=== PATIENT | female | born 1965 | race African-American/Black ===

== ENCOUNTER → 2016-06-28 | Outpatient (CLI) | payer OTHER ==
[~2016-06-28] MED LIST: CARISOPRODOL 3350 MG PO; CLARITIN10 MG PO; DETROL2 M1 PO; HYDROCHLOROTHIA25 M2 PO; LEXAPRO20 MG PO; LOPRESSOR50 MG PO; LOPRESSOR50 PO; MOBIC15 MG PO; NEURONTIN 300300 M1 PO; NORVASC5 MG PO; OMEPRAZOLE 20 M20 M1 PO; OXYCODONE HCL 55 MG PO; RESTORIL30 MG PO; SYMBICORT160 MCG/4. INH; SYMBYAX 6-25 M1 EACH PO; VENTOLIN HFA 1818 GM INH; XANAX1 MG PO; ZANAFLEX4 MG PO
== END ==
LOC: CAT 10:21
DX: E04.1 Nontoxic single thyroid nodule (principal); R22.0 Localized swelling, mass and lump, head

== ENCOUNTER → 2016-07-02 | Outpatient (CLI) | payer OTHER ==
[~2016-07-02] VITALS: Ht 160 cm; Wt 74.8 kg
[~2016-07-02] MED LIST changes: +BUTRANS1 EAC2 TD; +COZAAR 50 MG TA50 M2 PO; +NEURONTIN600 MG PO
--- NOTE | ~2016-07-02 | HPC ---
[facility] [place] [address] PAIN MANAGEMENT CONSULTATION Name: RAJEEV DURON Room #: REG [facility] Amelia.#: [id number] Admission: 07/02/16 Attend Phys: Rui Mccain DO Discharge: Date of : 67 Report #: [id number] THIS REPORT FOR: //name// CC: Iker Mccain HISTORY OF PRESENT ILLNESS: The patient is a 51-year-old female. She was prior seen in the pain clinic in consultation, 06/04/2016. The patient was diagnosed with symptomatic acute and chronic pain. Component of neuropathic pain (burning dysesthesia in bilateral legs), general deconditioning, axial back pain with multiple psychiatric comorbidities including posttraumatic stress disorder, on multiple central acting agents including a very large dose alprazolam (2 mg 5 times a day) and she had been prior habituated to high dose opiates including oxycodone 30 mg up to 4 times a day. She was weaning down when I saw her, she was down to 10 mg 4 times a day. I suggested she drop to b.i.d. and continue to wean. We trialed patient on gabapentin 300 mg titrating up to 2 tablets 3 times a day. I had recommended physical therapy at that visit, though the patient really has not started this. She notes that her daughter does have a gym member and she is planning to move forward with going to the gym with her daughter and starting water therapy. She is moving to a facility that does have an outer pool, so she can hopefully continue that activity in the summer. The patient presents to the pain clinic today, we had a prolonged visit from 8:30 to 8:55, greater than 50% of the 25+ minute visit was spent counseling the patient. The patient notes gabapentin does not afford dramatic relief. She is completely out of opiates. She rates her pain "10" on a 0-10 visual analog scale. She describes aching pain, left greater than right leg, subjective weakness in the left leg. States she has some right shoulder pain which is nominal. She describes constant, burning, shooting, aching, stabbing pain, again rating it at 10 on a 0-10 visual analog scale. States pain is exacerbated with sitting, standing or lying down. PHYSICAL EXAMINATION: Shows 51-year-old female, BMI is 29.2 kilograms per meter squared. Blood pressure is 139/97, pulse 89, respirations 16. Cervical range of motion is full. Upper extremity strength is preserved. Rises from the chair using armrests, has an antalgic gait. Lumbar flexion is good to about 80 degrees. Objectively, lower extremity strength is 4/5 to all muscle groups tested including hip flexion, lower extremity flexion, extension and dorsiflexion, plantarflexion. Patellar and Achilles reflexes are preserved at 1/4. Straight leg raise does not reproduce radicular symptoms, though she does complain of pain in her hips. Passive rotation of the hips produces subjective pain though during my exam, I utilized a fairly nominal range of motion. There was no guarding, there was no crepitance, merely subjective complaint of pain. Becky test was negative. The patient complained of anterior thigh pain more compatible with some stretching of the proximal quadriceps. Inspection of the [facility] [address] [place] [address] PAIN MANAGEMENT CONSULTATION Name: RAJEEV DURON Room #: REG Anthony Purvis#: [id number] Admission: 07/02/16 Attend Phys: Rui Mccain DO Discharge: Date of : 67 Report #: [id number] back is unremarkable, midline is good. There is some diffuse subjective tenderness, no discrete trigger points or muscle spasms appreciable. I again reviewed the patient's MRI from 04/16/2016 really fairly unremarkable. L2-L3, L3-L4, L4-L5 are all within normal limits. L5-S1 shows some loss of disk height. There is no central stenosis. There is mild neural foraminal narrowing on the left. ASSESSMENT: Chronic pain syndrome requiring complex medication management, axial back pain, general deconditioning, significant psychiatric comorbidities in a patient with prior history of opiate habituation. RECOMMENDATION: 1. Again strongly recommend that the patient consider physical therapy. I had written for PT for core stabilization last visit, though the patient has not started this. 2. We will rotate from gabapentin 300 mg 2 tablets 3 times a day to a single 600 mg tablet 3 times a day. Continue meloxicam 15 mg 1 a day, tizanidine as needed for spasm. After a long discussion with the patient today, we have elected to trial of Butrans patch at 10 mcg q. 7 days. I pointed out that short acting opiates are contraindicated for chronic pain issues, particularly when there is no discernible pathology noted. The patient was discharged in good and stable condition. Follow up in 4 weeks for reevaluation. We may consider titrating Butrans dose as indicated. I stressed to the patient she will not be "pain free." We are merely trying to enable the patient to increase her functional status with" some "diminution of her subjective pain. By: [id number] Rui Mccain DO /nt
[2016-07-02 08:47] VITALS: BP 139/97
== END ==
LOC: PAIN
DX: G89.4 Chronic pain syndrome (principal); M54.89 Other dorsalgia; G43.809 Other migraine, not intractable, without status migrainosus; F32.9 Major depressive disorder, single episode, unspecified

== ENCOUNTER → 2016-07-30 | Outpatient (CLI) | payer OTHER ==
[~2016-07-30] VITALS: Ht 160 cm; Wt 74.8 kg
[~2016-07-30] MED LIST changes: +BUTRANS1 EACH TD
--- NOTE | ~2016-07-30 | HPC ---
[facility] [place] [address] PAIN MANAGEMENT CONSULTATION Name: RAJEEV DURON Room #: REG [facility] Hyun#: [id number] Admission: 07/30/16 Attend Phys: Rui Mccain DO Discharge: Date of : 67 Report #: [id number] THIS REPORT FOR: //name// CC: Iker Mccain The patient is a 51-year-old female last seen in the pain clinic 07/02/2016. She came to us on high opiate and benzo use. Continue to take Xanax 2 mg up to 5 a day. Had rotated down from very high dose opiates. I started the patient on Butrans patch at 10 mcg q. 7 days. She returns to pain clinic today stating that this is not efficacious "at all." She is taking gabapentin 600 mg t.i.d. She complains of subjective pain that she rates at 10 on a 0-10 visual analog scale, complaining of pain in her back and she was wearing a brace on her left knee. Prior to office visits in June noted absolutely no dramatic pathology. Simply subjective pain. I wrote for physical therapy at last visit, it is unclear if the patient has been able to meet this appointment. She is wearing a brace in the left knee, states she had steroid injections in her left knee with no efficacy from her general freight agent physician. She apparently has seen an orthopedic surgeon who suggested no surgery. She uses a cane in her right hand. PHYSICAL EXAMINATION: Shows 51-year-old female, BMI is 29.2 kilograms per meter squared. Vital signs are absolutely within normal limits and stable. She is alert and oriented to person, place, and time, judged to be a reasonable historian. Inspection of the left knee shows modest ballotable edema, perhaps 15 or 20 mL at best. Ligaments are intact. Diffuse axial tenderness across the low back. No discrete trigger points noted. Lower extremity strength is symmetric. Deep tendon reflexes are preserved. ASSESSMENT: Neuropathic pain, chronic pain syndrome, axial back pain, history of posttraumatic stress disorder requiring complex medication management with some component of left knee degenerative joint disease. RECOMMENDATIONS: 1. We will get x-rays of the left knee 3 views. If there is any dramatic pathology, we can consider steroid and/or course of Synvisc injections. 2. We have elected to increase Butrans 100% to 20 mcg q. 7 days. May use acetaminophen up to 3000 mg for breakthrough pain. Reminded patient about concern for concurrent use of any opiate, even buprenorphine and benzodiazepines. Continue meloxicam 15 mg a day and tizanidine for spasm. Follow up in 4 weeks to evaluate efficacy of intervention[place] [address] PAIN MANAGEMENT CONSULTATION Name: RAJEEV DURON Room #: REG GLORIA Purvis#: [id number] Admission: 07/30/16 Attend Phys: Rui Mccain DO Discharge: Date of : 67 Report #: [id number] review diagnostic studies. I again assured the patient that she has no dramatic pathology. We will simply continue the most conservative course that we can. Discharged in good and stable condition after prolonged visit, seen for approximately 30 minutes, greater than 50% of time spent counseling the patient. <ELECTRONICALLY SIGNED> By: Rui Mccain DO 08/02/16 0806 1233 [id number] Rui Mccain DO /nt
[2016-07-30 10:17] VITALS: BP 125/72
== END ==
LOC: PAIN 07:17
DX: G89.4 Chronic pain syndrome (principal); M79.2 Neuralgia and neuritis, unspecified; M54.9 Dorsalgia, unspecified; F43.10 Post-traumatic stress disorder, unspecified; M17.12 Unilateral primary osteoarthritis, left knee; G43.909 Migraine, unspecified, not intractable, without status migrainosus; F11.20 Opioid dependence, uncomplicated; Z98.890 Other specified postprocedural states

== ENCOUNTER → 2016-08-27 | Outpatient (CLI) | payer OTHER ==
[~2016-08-27] VITALS: Ht 160 cm; Wt 76.7 kg
--- NOTE | ~2016-08-27 | HPC ---
[facility] [place] [address] PAIN MANAGEMENT CONSULTATION Name: RAJEEV DURON Room #: REG [facility] Amelia.#: [id number] Admission: 08/27/16 Attend Phys: Rui Mccain DO Discharge: Date of : 67 Report #: [id number] THIS REPORT FOR: //name// CC: Iker Mccain HISTORY OF PRESENT ILLNESS: The patient is a 51-year-old female last seen in pain clinic 07/30/2016. The patient is being treated for chronic pain syndrome, neuropathic pain, axial back pain, DJD left knee, history of PTSD requiring complex medication management. Last visit, we increased Butrans patch from 10 to 20 mcg q. 7 days. Continue gabapentin 600 mg t.i.d. Encourage the patient to continue weaning Xanax with her primary treating physician, Dr. Sharp. She was down to Xanax 2 mg 5 a day at that time. Continue meloxicam and tizanidine for spasm. With increasing pain in the left knee, I ordered x-rays to be accomplished. They were accomplished 07/30/2016. We reviewed those findings today, the joint spaces are well maintained without narrowing or spurring. There is some mild spurring along the anterior superior patella. There is a bone island in the distal femur, which as the radiologist notes is "of doubtful significance." Visualization of the right knee noted on several planes showed really no pathology here either. I prescribed physical therapy 06/04/2016, but patient never followed through with this recommendation. Returns to pain clinic today noting pain today is at 8/10. Complains of pain in her buttocks, legs, calf and knees. Pain in the right shoulder as well. She describes constant, burning, shooting, aching pain, rates it an 8 on a 0-10 visual analog scale, exacerbated with sitting, standing and lying down. Noting "nothing else." PHYSICAL EXAMINATION: GENERAL: Shows a 51-year-old female, BMI is 29.9 kilograms per meter squared. VITAL SIGNS: Blood pressure is 115/77, pulse 85, respirations are 14. Cranial nerves 2-12 are grossly intact. HEENT: Pupils are equal, reactive to light and accommodation. Extraocular muscles are intact. NEUROLOGIC: Alert and oriented to person, place and time, judged to be a reasonable historian. Rises from the chair using the armrest. Gait is tandem. Inspection of the knee shows really no ballottable edema on either side. Ligaments are intact. ASSESSMENT: Chronic pain syndrome requiring complex medication management, axial back pain, subjective pain in the knees, PTSD by history. [address] [address] PAIN MANAGEMENT CONSULTATION Name: DAVID DURONKIRILL Emery Room #: REG [facility] Hyun#: [id number] Admission: 08/27/16 Attend Phys: Rui Mccain DO Discharge: Date of : 67 Report #: [id number] RECOMMENDATIONS: Long discussion with the patient today about therapeutic option. We have elected to simply continue Butrans at 20 mcg q. 7 days, Meloxicam 15 mg 1 a day. Strongly encouraged increased range of motion, physical activity and water aerobics. Follow up in 3 months for evaluation. Discharged in good and stable condition. By: [id number] Rui Mccain, /nt
[2016-08-27 08:13] VITALS: BP 115/77
== END | disposition home or self-care (01) ==
LOC: PAIN 07:09
DX: G89.4 Chronic pain syndrome (principal); M17.12 Unilateral primary osteoarthritis, left knee; M54.9 Dorsalgia, unspecified; M25.561 Pain in right knee; M25.562 Pain in left knee; Z87.898 Personal history of other specified conditions

== ENCOUNTER → 2016-11-11 | Outpatient (CLI) | payer OTHER ==
[~2016-11-11] VITALS: Ht 157.5 cm; Wt 74.8 kg
[~2016-11-11] MED LIST changes: +BUPRENORPHINE HC2 MG SL; +LOSARTAN-HCTZ1 EAC3 PO
--- NOTE | ~2016-11-11 | HPC ---
[facility] [place] [address] PAIN MANAGEMENT CONSULTATION Name: RAJEEV DURON [id number] Admission: 11/11/16 Attend Phys: Rui Mccain DO Discharge: Date of : 67 Report #: [id number] THIS REPORT FOR: //name// CC: Iker Mccain HISTORY OF PRESENT ILLNESS: The patient is a 51-year-old female, prior seen 08/27/2016 for chronic pain, DJD affecting knees and historically, moderate obesity with a BMI of 30.2 kilograms per meter squared, requiring complex medication management. Significant comorbidity includes PTSD on multiple central acting agents. She returns to pain clinic today, last seen in pain clinic 08/27/2016, continue Butrans 20 mcg with Meloxicam 15 mg 1 a day. The patient sent to physical therapy for water aerobics. She returns to pain clinic today. She notes that the Butrans simply is not working. Pain is in the low back, buttocks and legs. To her credit, she has been doing water aerobics. She is, however, still taking fairly high dose Xanax 1 mg up to 5 times a day. She notes pain is low back, buttocks and legs, chronic burning, aching. She rates it at 10 on a VAS. Pain exacerbated with any activity. PHYSICAL EXAMINATION: VITAL SIGNS: Shows 51-year-old female, BMI is 30.2 kilograms per meter squared. Vital signs show modest hypertension 145/85, pulse 83, respirations 16. EXTREMITIES: Rises from chair using armrests, antalgic gait, diffuse tenderness across the low back, some tenderness particularly in that left knee, though no ballotable edema is noted. RECOMMENDATIONS: Long discussion with the patient today about therapeutic options and have elected to simply wean the Butrans, I will have her discontinue that patch, I wrote a short course for buprenorphine 2 mg, dispensed 12 tablets to use 1, 3 times a day for 2 days, 2 a day for 2 days and 1 a day for 2 days. I would like to see her back in about 2 weeks for reevaluation. We may consider starting her on Embeda 20 mg/0.8 single dose opiate. While concern with history of PTSD, multiple central acting agents including Xanax if she does require an ongoing analgesic agent, I think limiting her ability to escalate the dose, i.e., 1 a day medication would be most logical. Discharged in good and stable condition. Follow up in 2 weeks for reevaluation. By: [id number] Rui Mccain DO /nt
[2016-11-11 12:46] VITALS: BP 145/85
== END ==
LOC: PAIN 06:54
DX: M17.0 Bilateral primary osteoarthritis of knee (principal); M54.5 Low back pain; M54.2 Cervicalgia; I10 Essential (primary) hypertension; Z88.8 Allergy status to other drugs, medicaments and biological substances; Z79.899 Other long term (current) drug therapy

== ENCOUNTER → 2016-11-25 | Outpatient (CLI) | payer OTHER ==
[~2016-11-25] VITALS: Ht 157.5 cm; Wt 73.5 kg
[~2016-11-25] MED LIST changes: +EMBEDA ER 20-01 EACH PO
--- NOTE | ~2016-11-25 | HPC ---
[facility] [place] [address] PAIN MANAGEMENT CONSULTATION Name: RAJEEV DURON Room #: REG [facility].#: [id number] Admission: 11/25/16 Attend Phys: Rui Mccain DO Discharge: Date of : 67 Report #: [id number] THIS REPORT FOR: //name// CC: Iker Mccain The patient is a 51-year-old female being treated for DJD bilateral knees, chronic pain, axial back pain, significant history of PTSD. Last visit 11/11/2016. We had trailed buprenorphine patch up to 20 mcg with really no efficacy. At last visit, we elected to discontinue this agent, I wrote for a weaning dose using buprenorphine. Unfortunately, the patient never filled that prescription. She merely stopped abruptly the Butrans patch. She notes really no changes. She still rates her pain a "10" on a VAS, pain is in the low back, buttocks, bilateral legs at both knees being problematic. Chronic, sharp pain exacerbated with any weightbearing. Physical exam is otherwise unchanged, 51-year-old female, BMI is 29.6 kilograms per meter squared. Blood pressure is modestly elevated at 141/91, pulse 86, respirations are 14. Rises from chair using armrest, subjectively antalgic gait, diffuse tenderness across the low back. No discrete trigger points noted. Painful palpation of the knees, though I detect no ballotable edema, the ligaments appear to be intact. Discussion with the patient today about therapeutic options. To her credit, she is doing some water aerobics. She is frustrated the pain remains problematic. She has significant psychiatric comorbidities, history of PTSD, on copious load of Xanax, 2 mg 5 times a day, does use tizanidine (Zanaflex) 8 mg at bedtime, meloxicam 15 mg 1 a day, gabapentin 600 mg t.i.d. and crest. All three 150 mg 1 Carisoprodol 350 mg 1 in the morning and 2 at night. Long discussion with the patient today about therapeutic options. Great concern for concurrent use of opiate analgesics and benzodiazepines. Nonetheless, after much discussion and exchange of information, we have elected to trial Embeda 20 mg with 0.8 Narcan as a single once a day opiate. We will try 1 tablet in the morning for 30 days if this affords untoward sedation, she can move that to the evening. Absolutely mandate no ethanol use (she does not drink per reports). If this causes any cognitive impairment or sedation, we will have her stop immediately and return to the pain clinic. Thanks for allowing me to participate in patient's care. Again, we will trial adding the lowest dose long acting opiate covered by Medicaid to help with her chronic pain state and trying to improve functional status. [address] [address] PAIN MANAGEMENT CONSULTATION Name: RAJEEV DURON Room #: REG [facility] Purvis#: [id number] Admission: 11/25/16 Attend Phys: Rui Mccain DO Discharge: Date of : 67 Report #: [id number] Discharged in good and stable condition. Follow up in 4 weeks for reevaluation. <ELECTRONICALLY SIGNED> By: Rui Mccain DO 11/26/16 1225 1148 11 Rui Mccain DO /nt
[2016-11-25 11:14] VITALS: BP 141/91
== END ==
LOC: PAIN 06:59
DX: M17.0 Bilateral primary osteoarthritis of knee (principal); M54.9 Dorsalgia, unspecified; G89.29 Other chronic pain

== ENCOUNTER → 2016-12-23 | Outpatient (CLI) | payer OTHER ==
[~2016-12-23] VITALS: Ht 157.5 cm; Wt 76.3 kg
[~2016-12-23] MED LIST changes: +EMBEDA ER 30-11 EACH PO
--- NOTE | ~2016-12-23 | HPC ---
[facility] [place] [address] PAIN MANAGEMENT CONSULTATION Name: RAJEEV DURON Room #: REG [facility].#: [id number] Admission: 12/23/16 Attend Phys: Rui Mccain DO Discharge: Date of : 67 Report #: [id number] THIS REPORT FOR: //name// CC: Iker Mccain The patient is a 51-year-old female, well known to pain clinic, being treated for DJD of bilateral knees, axial back pain, posttraumatic stress disorder by history, requiring high risk complex medication management. Last visit 11/25/2016, we had trialed buprenorphine up to 20 mcg with little efficacy, we rotated to Embeda 20 mg/0.8. The patient returns to pain clinic today noting that this medication is helpful, but the pain still remains problematic. She rates it 7 on VAS. Pain primarily low back, both legs, and back of the knees. She notes the pain is exacerbated with standing. She takes the Embeda at bedtime, had a little bit of dizziness when taking during the day. PHYSICAL EXAMINATION: Otherwise relatively unchanged, 51-year-old female, BMI is 30.8 kg/m2. Blood pressure is modestly elevated 140/93, pulse 105, and respirations 16. Rises from chair using armrest. Gait is modestly antalgic, though lower extremity strength is symmetric. Straight leg raise is negative. Patellar and Achilles reflexes are preserved. Cervical range of motion is full. Upper extremity strength is preserved. The patient has subjective complaint of pain in the knees, though no ballotable edema is appreciable. Ligaments are intact. ASSESSMENT: Symptomatic degenerative joint disease, bilateral knees; axial back pain, requiring high risk complex medication management, medication management compounded by complication of posttraumatic stress disorder. RECOMMENDATIONS: 1. I have discussion with the patient today, we elected to get a buccal swab today, should be positive for morphine as the sole opiate, no aberrant behavior suggestive for drug diversion, simply complying with our opiate consent to treat contract. 2. We will increase Embeda from 20-30/1.2 mg tablets, dispensed 30 tablets, follow up at that time; if doing well, we may consider 2 months refills. By: [id number] Rui Mccain DO /nt
[2016-12-23 10:21] VITALS: BP 140/93
== END | disposition home or self-care (01) ==
LOC: PAIN 07:02
DX: Z76.0 Encounter for issue of repeat prescription (principal); M17.0 Bilateral primary osteoarthritis of knee; M54.9 Dorsalgia, unspecified; F43.10 Post-traumatic stress disorder, unspecified; G89.29 Other chronic pain; Z79.899 Other long term (current) drug therapy; Z88.8 Allergy status to other drugs, medicaments and biological substances; Z98.890 Other specified postprocedural states; Z79.891 Long term (current) use of opiate analgesic

== ENCOUNTER → 2017-01-20 | Outpatient (CLI) | payer OTHER ==
[~2017-01-20] VITALS: Ht 157.5 cm; Wt 79.0 kg
[~2017-01-20] MED LIST changes: +SUBOXONE 8 MG-1 EAC3 SUBLING; +XTAMPZA ER13.5 MG PO; +XTAMPZA ER27 MG PO
--- NOTE | ~2017-01-20 | HPC ---
[facility] [place] [address] PAIN MANAGEMENT CONSULTATION Name: RAJEEV DURON Room #: REG [facility] Julio CCb#: [id number] Admission: 01/20/17 Attend Phys: Rui Mccain DO Discharge: Date of : 67 Report #: [id number] THIS REPORT FOR: //name// CC: Iker Mccain HISTORY OF PRESENT ILLNESS: The patient is a 51-year-old female being treated for DJD affecting knees, axial back pain, history of posttraumatic stress disorder, requiring high risk complex medication management. At last visit on 12/23/2016 we increased Embeda from 20 to 30 mg, unfortunately this was not covered by her insurance. She returns to pain clinic today, she is now frustrated. She notes oxycodone had helped better, although she was on egregiously high dose at point taking oxycodone 30 mg 4 times a day. She returns today noting her pain score "10" on a VAS, stating pain is in the neck, low back, "her whole spine hurts." PHYSICAL EXAMINATION: Shows 51-year-old female, BMI is 31.9 kilograms per meter squared. Vital signs stable as noted in the EMR. Rises from chair using armrest. Diffuse tenderness across the low back. No discrete trigger points are noted. Gait is modestly antalgic gait. Straight leg raise is modestly positive. No discrete trigger points are noted. ASSESSMENT: 1. Symptomatic lumbar radiculopathy. 2. Axial back pain. 3. Degenerative joint disease affecting knees. 4. Posttraumatic stress disorder by history, requiring high risk complex medication management. PLAN: Today we reviewed buccal swab from last visit, it was negative for gabapentin, negative for morphine, positive for delta-9 THC. Long discussion with the patient today about therapeutic options. I spent approximately 25 minutes with the patient today. I stressed that I cannot in good conscious continue to write for a scheduled narcotic if she continues to use any illegal uncontrolled substances (marijuana). I also pointed out the concern that both gabapentin and morphine were absent from the buccal swab. Ultimately, after discussion, I have elected to give the patient one more chance, I pointed out that marijuana typically stays in the system up to 30-60 days. We will try rotating to Xtampza, an oxycodone product, generally covered by Medicaid, 27 mg b.i.d. This is the maximum therapeutic dose equivalent to roughly 90 mg of morphine a day. Mandate smoking cessation and no use of THC-containing products. We will follow up in 1 month to evaluate efficacy of medication. I will give her 2 months to clear any THC in the system and we will repeat buccal swab in 2 months. If positive for anything other than oxycodone, [address] [address] PAIN MANAGEMENT CONSULTATION Name: RAJEEV DURON Room #: REG [facility] Hyun#: [id number] Admission: 01/20/17 Attend Phys: Rui Mccain DO Discharge: Date of : 67 Report #: [id number] I told the patient my hands will be tied and I will not be able to be her treating physician. The patient states she has gabapentin at home 600 mg t.i.d., does not require renewal for this prescription. The patient was discharged in good and stable condition after 25 minutes were spent with the patient, greater than 50% of this time spent counseling regarding concerns for aberrant buccal random drug findings and discussing opioid rotation. <ELECTRONICALLY SIGNED> By: Rui Mccain DO 01/21/17 0926 1726 0048 Rui Mccain DO /nt
[2017-01-20 10:35] VITALS: BP 127/90
== END ==
LOC: PAIN 07:00
DX: M17.0 Bilateral primary osteoarthritis of knee (principal); M54.16 Radiculopathy, lumbar region

== ENCOUNTER → 2017-03-17 | Outpatient (CLI) | payer OTHER ==
[~2017-03-17] VITALS: Ht 157.5 cm; Wt 78.1 kg
[~2017-03-17] MED LIST changes: +CYMBALTA30 MG PO; +XTAMPZA ER18 MG PO
--- NOTE | ~2017-03-17 | HPC ---
[facility] [place] [address] PAIN MANAGEMENT CONSULTATION Name: RAJEEV DURON Room #: REG [facility] MCb.#: [id number] Admission: 03/17/17 Attend Phys: Rui Mccain DO Discharge: Date of : 67 Report #: [id number] THIS REPORT FOR: //name// CC: Iker Mccain DATE OF SERVICE: 03/17/2017 The patient is a 51-year-old female, prior seen in the Pain Clinic on 02/17/2017. She is being treated for chronic pain syndrome with neuropathic pain component (left leg), axial back pain, multiple psychiatric comorbidities including posttraumatic stress disorder (highly associated with somatic pain), patient on multiple central acting drugs. The patient prior on high-dose short-acting opiates, by reports 30 mg oxycodone 4 times a day. She had been weaned down to oxycodone 10 mg 4 times a day, was complaining of increasing pain. At that visit, we had a long discussion. I have elected to enter into an opiate consent to treat contract with the patient. I told her we would be using a long-acting opiate with no breakthrough medicine. Unfortunately, first random drug screen obtained on 12/23/2016 is positive for delta 9 THC. Counseled the patient at followup visit 01/20/2017 about need to stop marijuana use immediately. The patient was continued on Xtampza and we mandated smoking cessation. We had increased the dose from 13-18 mg b.i.d. On followup visit 02/17/2017, we repeated buccal swab random drug screen, which again came back positive for delta 9 THC. I counseled the patient regarding need to discontinue this agent. I told her if she had one more positive screen, I would not be able to continue writing for any opiate analgesics for her. Did caution concern about using illegal marijuana in conjunction with multiple central acting agents including oxycodone, Xanax, Soma, and gabapentin, can have untoward additive effects. Today, the patient presents to Pain Clinic for prolonged visit. She was complaining of upper back muscle spasm and pain, pins and needle sensation in her hand and left knee swelling. PHYSICAL EXAMINATION: Does show some diffuse axial tenderness in the upper back, mid thoracic area, though no discrete trigger points are noted. I can discern no "knots" that the patient subjectively states she can feel. The patient states she has been dropping things with her right hand primarily. Cervical range of motion is full. Upper extremity strength is preserved. Deep tendon reflexes are symmetric. Tinel's is negative. Objectively, hand grasp was symmetric, though patient notes she has subjective pins and needle sensation. Complaining of pain in the left knee. I prior obtained x-ray of the left knee on 07/30/2016, shows some mild spurring along the anterior superior patella. Otherwise bony structures were unremarkable. [place] [address] PAIN MANAGEMENT CONSULTATION Name: RAJEEV DURON Room #: REG [facility] Purvis#: [id number] Admission: 03/17/17 Attend Phys: Rui Mccain DO Discharge: Date of : 67 Report #: [id number] complaining of ongoing pain. Physical exam does show the medial and lateral collateral ligaments to be intact. She may have some modest laxity of the AP ligaments (modestly positive drawer test) in the left compared to the right. Suggested she follow up with Orthopedics. She rates her subjective pain score of 7 on a VAS. We reviewed the fact that opiate medications are being used to provide analgesia adequate to support activities of daily living, not attempting to achieve a specific pain score on the 0-10 Visual Analog Scale. The current opiate medications are providing sufficient analgesia to allow the patient to participate in activities of daily living. The patient is not exhibiting any aberrant behavior suggestive of drug diversion. The patient is not having any adverse reactions to medications. The patient is not suffering from daytime somnolence or mental acuity changes. The patient is managing opiate-induced constipation with appropriate dmrz-sre-dbdnmhu agents and dietary considerations. The patient was counseled on concern for caution with operating a motor vehicle while using opiate medications. A physical exam was performed and the patient's functional status was evaluated. All patients with back pain were advised against the bed rest greater than 4 days and were advised to return to normal activities. Pain score assessment was noted and the treatment plan was reviewed with the patient. All current medications, both prescribed and OTC were reviewed and reconciled on the electronic medical record. Tobacco screening was accomplished and smoking cessation was advised when indicated. BMI was noted and diet/exercise modification was recommended for all patients following outside normal parameters. I reviewed with the patient today their responsibilities to safeguard prescription medications, reviewed their responsibility to utilize medications only as prescribed by the physician. They are to seek and receive pain medications only from 1 physician group ( [facility]). They are to use 1 pharmacy and keep the clinic informed if they change pharmacies. Their responsibilities include making followup visits in a timely fashion and to avoid abrupt discontinuation of medication usage. Their responsibilities further include bringing their medications (bottles from the pharmacy with residual pills) to the visit for possible confirmation of pill counts and the patient understands it is their responsibility to submit to random drug screens to ensure both that the medications prescribed are present, and that no other controlled substances are present. All prescriptions provided today were generated electronically. Remaining physical exam is unremarkable, BMI is 31.5 kg/m2. Vitals are stable as noted in the EMR. She continues to smoke and was counseled regarding same. [facility] [address] [place] [address] PAIN MANAGEMENT CONSULTATION Name: RAJEEV DURON Room #: REG [facility].#: [id number] Admission: 03/17/17 Attend Phys: Rui Mccain DO Discharge: Date of : 67 Report #: [id number] ASSESSMENT: Chronic pain syndrome requiring complex medication management; history of posttraumatic stress disorder; history of cervical decompressive laminectomy; degenerative joint disease, left greater than right knee. RECOMMENDATION: Long discussion with the patient today about therapeutic options. I told her that we will repeat a buccal swab today. If it is positive for THC, she will need to attend a drug detox course and I will not be able to write for any opiate analgesics for her. I did suggest that we will start Cymbalta to help with myofascial pain component in the upper back 30 mg at bedtime. I have taken the liberty of writing this medication 30 tablets with 2 refills. She already had some refills for gabapentin. We increased Xtampza ER from 18-27 mg b.i.d. I wrote for 60 tablets for it. Follow up in 4 weeks for reevaluation. Again, buccal swab was accomplished today. If positive for delta 9 THC, this will be the third in a row after significant counseling, I will not be able to write for any controlled substances for the patient. Discharged in good and stable condition after 25+ minute visit was spent counseling the patient with critical medication decisions being discussed and made. <ELECTRONICALLY SIGNED> By: Rui Mccain DO 03/18/17 0943 [id number] Rui Mccain DO /nt
[2017-03-17 10:33] VITALS: BP 132/81
== END ==
LOC: PAIN 06:08
DX: M17.12 Unilateral primary osteoarthritis, left knee (principal); F43.12 Post-traumatic stress disorder, chronic; G89.4 Chronic pain syndrome; M79.2 Neuralgia and neuritis, unspecified; M54.9 Dorsalgia, unspecified; Z79.899 Other long term (current) drug therapy; Z98.890 Other specified postprocedural states

== ENCOUNTER → 2017-04-06 | Outpatient (CLI) | payer OTHER | LOC: MRI 10:07 | DX: M25.562 Pain in left knee (principal); M79.89 Other specified soft tissue disorders; R60.0 Localized edema; M24.10 Other articular cartilage disorders, unspecified site ==

== ENCOUNTER 2017-06-13 15:31 | Emergency (ER) | payer OTHER ==
[~2017-06-13] VITALS: Ht 157.5 cm; Wt 76.7 kg
--- NOTE | ~2017-06-13 | EKG ---
[address] [place] [address] ELECTROCARDIOGRAM REPORT Name: RAJEEV DURON [id number] Admission: 06/13/17 Attend Phys: Discharge: 06/13/17 Date of : 67 Report #: [id number] THIS REPORT FOR: //name// [facility] ED Test Date: 2017-06-13 Test Time: 15:39:31 Pat Name: RAJEEV DURON Department: Room: Gender: F Machine [employer]er: CHARLEEN : 1965 Requested By: Stiven Martin Order Number: [id number] MD: Shai Wei Measurements Intervals [place] Rate: 92 P: 63 MT: 153 QRS: 4 QRSD: 82 T: QT: 352 QTc: 436 Interpretive Statements Sinus rhythm Nonspecific T abnrm, anterolateral leads No previous ECG available for comparison Electronically Signed On 06-14-2017 13:22:55 CDT by Shai Wei [email or web address] <ELECTRONICALLY SIGNED> By: Shai Wei MD, [facility] 06/14/17 1322 1539 1539 Shai Wei MD, FACC /EPI
[2017-06-13 16:00] LABS: ABSOLUTE NEUTROPHILS 8.3 thou/uL (1.4-8.2); BASOPHILS 0.8 % (0.0-2.0); EOSINOPHILS 0.3 % (0.0-3.0); HEMATOCRIT 37.3 % (37.0-47.0); HEMOGLOBIN 12.2 gm/dL (12.0-15.0); LYMPHOCYTES 30.1 % (24.0-44.0); MCH 29.9 pg (26.0-34.0); MCHC 32.9 g/dL (28.0-37.0); MCV 90.9 fL (80.0-100.0); MONOCYTES 4.9 % (1.0-8.0); PLATELET COUNT 252 thou/uL (150-400); POLYS 63.9 % (36.0-66.0)
[2017-06-13 16:08] LABS: ANION GAP 12 mmol/L (7-16); BUN 21 mg/dL (7-18); CALCIUM 9.3 mg/dL (8.5-10.1); CHLORIDE 105 mmol/L (98-107); CO2 25 mmol/L (21-32); GLUCOSE 120 mg/dL (74-106); POTASSIUM 3.8 mmol/L (3.5-5.1); SODIUM 142 mmol/L (136-145)
[2017-06-13 16:17] LABS: ALBUMIN 4.1 g/dL (3.4-5.0); SGOT 25 U/L (15-37); SGPT 37 U/L (30-65); TOTAL BILIRUBIN 0.3 mg/dL (<0.1-1.0); TOTAL PROTEIN 7.7 g/dL (6.4-8.2); TROPONIN-I < 0.04 ng/mL (<0.06)
[2017-06-13 17:38] LABS: URINE BILIRUBIN NEGATIVE (Negative); URINE BLOOD TRACE (Negative); URINE CLARITY CLEAR; URINE COLOR YELLOW; URINE GLUCOSE-RANDOM* NEGATIVE (Negative); URINE KETONES NEGATIVE (Negative); URINE LEUKOCYTES NEGATIVE (Negative); URINE NITRITE NEGATIVE (Negative); URINE PROTEIN (DIPSTICK) NEGATIVE (Negative); URINE UROBILINOGEN 0.2 E.U./dl (0.2-1.0)
[2017-06-13 19:50] VITALS: BP 168/105
== END 2017-06-13 19:52 | disposition still patient (30) ==
LOC: ER 15:31
PROVIDERS: Physician Assistant
DX: K12.2 Cellulitis and abscess of mouth (principal); R07.89 Other chest pain; I10 Essential (primary) hypertension; F10.99 Alcohol use, unspecified with unspecified alcohol-induced disorder; Z90.49 Acquired absence of other specified parts of digestive tract; Z88.8 Allergy status to other drugs, medicaments and biological substances

== ENCOUNTER → 2017-06-28 | Outpatient (CLI) | payer OTHER ==
--- NOTE | ~2017-06-28 | EEG ---
[facility] [place] [address] ELECTROENCEPHALOGRAM Name: RAJEEV DURON Room #: REG [facility]..#: [id number] Admission: 06/28/17 Attend Phys: Jay Barry MD Discharge: Date of : 67 Report #: [id number] THIS REPORT FOR: //name// CC: Iker Barry DATE OF SERVICE: 06/28/2017 This patient is being evaluated for syncope. EEG was done by placing the electrodes by standard 10/20 system of electrode placement. Both referential and sequential montages were used for recording. The patient's background activity is about 11-12 Hz and 30 microvolt. This patient became drowsy and that is associated with bilaterally symmetrical slowing and vertex sharp waves. Photic stimulation is unremarkable. Throughout the record, no active epileptiform activity was noticed. IMPRESSION: This patient's EEG is within normal limits. Thank you very much for this referral. <ELECTRONICALLY SIGNED> By: Jay Barry MD 06/30/17 [id number] Jay Barry MD /nt
== END ==
LOC: NEURO 12:05
DX: R55 Syncope and collapse (principal); R42 Dizziness and giddiness; G47.9 Sleep disorder, unspecified; F41.9 Anxiety disorder, unspecified; T88.7XXS Unspecified adverse effect of drug or medicament, sequela

== ENCOUNTER → 2018-07-25 | Outpatient (CLI) | payer OTHER | LOC: CAT 12:52 | DX: M54.12 Radiculopathy, cervical region (principal); M25.78 Osteophyte, vertebrae; Z98.890 Other specified postprocedural states ==

== ENCOUNTER 2019-12-13 09:57 | Emergency (ER) | payer OTHER ==
[~2019-12-13] VITALS: Ht 157.5 cm; Wt 77.1 kg
[2019-12-13 11:32] LABS: ABSOLUTE NEUTROPHILS 5.2 thou/uL (1.4-8.2); BASOPHILS 0.7 % (0.0-2.0); EOSINOPHILS 1.1 % (0.0-3.0); HEMATOCRIT 40.8 % (37.0-47.0); HEMOGLOBIN 13.6 gm/dL (12.0-15.0); LYMPHOCYTES 34.9 % (24.0-44.0); MCH 29.7 pg (26.0-34.0); MCHC 33.2 g/dL (28.0-37.0); MCV 89.5 fL (80.0-100.0); POLYS 59.3 % (36.0-66.0); RBC 4.56 mil/uL (4.20-5.00); RDW 12.5 % (10.5-14.5); WBC 8.7 thou/uL (4.0-11.0)
[2019-12-13 11:45] LABS: CALCIUM 9.3 mg/dL (8.5-10.1); CREATININE 0.9 mg/dL (0.6-1.0); POTASSIUM 4.2 mmol/L (3.5-5.1)
[2019-12-13 12:32] LABS: PLATELET COUNT 226 thou/uL (150-400)
[2019-12-13] MEDS ORDERED: LIDOCAINE VISC100 ML PO (14:29)
[2019-12-13] MEDS ORDERED: BENADRYL A12.5 MG/5 PO (14:29)
[2019-12-13 14:41] VITALS: BP 151/91
== END 2019-12-13 14:41 | disposition home or self-care (01) ==
LOC: ER 09:57
PROVIDERS: Emergency Medicine
DX: J02.9 Acute pharyngitis, unspecified (principal); R68.84 Jaw pain; M54.2 Cervicalgia; K08.89 Other specified disorders of teeth and supporting structures; Z90.711 Acquired absence of uterus with remaining cervical stump; Z98.890 Other specified postprocedural states; Z79.899 Other long term (current) drug therapy; Z88.8 Allergy status to other drugs, medicaments and biological substances